=== PATIENT | male | born 1985 | race Caucasian/White ===

== ENCOUNTER 2023-10-19 16:16 | Emergency (ER) | payer BC ==
[~2023-10-19] VITALS: Ht 182.9 cm; Wt 102.1 kg
[2023-10-19 16:23] VITALS: BP_SYST 135; PULSE 88; RESP 18; TEMP 98.3; O2SAT 94
[2023-10-19] MEDS: KETOROLAC TROMETHAMINE 30 MG VIAL IVP ONE (18:29)
[2023-10-19] MEDS: NACL 0.9% 1,000 ML IV ONE (18:29)
[2023-10-19] MEDS: ONDANSETRON HCL 4 MG/2 ML VIAL IVP ONE (18:30)
[2023-10-19 19:13] LABS: BASOPHILS # (AUTO) 0.1 K/uL (0.0-0.2); BASOPHILS % (AUTO) 0.9 % (0.0-2.0); EOSINOPHILS % (AUTO) 0.2 % (0.0-4.0); HEMATOCRIT 45.8 % (36-54); HEMOGLOBIN 15.8 g/dL (14.0-18.0); LYMPHOCYTES % (AUTO) 19.7 % (20.5-51.5); MEAN CORPUSCULAR HEMOGLOBIN 30 pg (27-31); MEAN CORPUSCULAR HGB CONC 35 % (32-36); MEAN CORPUSCULAR VOLUME 88 fL (79.0-98.0); MONOCYTES # (AUTO) 0.7 K/uL (0.0-1.0); NEUTROPHILS # (AUTO) 7.5 K/uL (1.8-7.7); NEUTROPHILS % (AUTO) 72.2 % (40.0-70.0); PLATELET COUNT (AUTO) 326 K/uL (130-430); RED CELL DISTRIBUTION WIDTH 13.6 % (9.0-15.0); WHITE BLOOD COUNT (AUTO) 10.3 K/uL (4.8-10.8)
[2023-10-19 19:48] LABS: CREATININE 1.26 mg/dL (0.55-1.30); POTASSIUM 3.9 mmol/L (3.5-5.1)
[2023-10-19 19:52] LABS: ALBUMIN 3.9 g/dL (3.4-4.8); BILIRUBIN,DIRECT 0.1 mg/dL (0.0-0.3); TOTAL BILIRUBIN 0.6 mg/dL (0.0-1.0); TOTAL PROTEIN, SERUM 7.5 g/dL (6.4-8.3)
[2023-10-19] MEDS ORDERED: ONDA-8 TL (20:17)
[2023-10-19 20:18] LABS: BILIRUBIN,URINE 1+ (NEGATIVE); BLOOD, URINE NEGATIVE (NEGATIVE); CLARITY/URINE CLEAR (CLEAR); COLOR,URINE YELLOW (YELLOW); GLUCOSE,URINE NEGATIVE (NEGATIVE); KETONES,URINE 3+ (NEGATIVE); LEUKOCYTE ESTERASE ,URINE NEGATIVE (NEGATIVE); NITRITE, URINE NEGATIVE (NEGATIVE); PROTEIN URINE TRACE (NEGATIVE)
[2023-10-19] MEDS ORDERED: METO-290 PO (20:30)
[2023-10-19 20:36] VITALS: BP_SYST 123; PULSE 94; RESP 20; TEMP 98.2; O2SAT 98
[2023-10-19 20:53] LABS: BACTERIA,URINE FEW /HPF (None Seen); RBC,URINE 0-3 /HPF (0-3); WBC,URINE 0-3 /HPF (0-3)
== END 2023-10-19 20:36 | disposition home or self-care (01) ==
LOC: SED 16:16
DX: R10.13 Epigastric pain (principal); R11.10 Vomiting, unspecified; F17.200 Nicotine dependence, unspecified, uncomplicated; F12.90 Cannabis use, unspecified, uncomplicated; Z79.899 Other long term (current) drug therapy
CPT/HCPCS: 99285; 74176; 96374; 96361; 96375; 80076; 80048; 81001; 83690; 85025; 36415; 81000; 81015; J1885; J2405; J7030